=== PATIENT | male | born 1955 | race Caucasian/White ===

== ENCOUNTER 2017-05-15 17:23 | Observation (INO) ==
[2017-05-15] MEDS ORDERED: MORPHINE 2 MG/1 ML SYRINGE IV STA (18:44)
[2017-05-15] MEDS ORDERED: ASPIRIN 325 MG TABLET PO STA (18:44)
[2017-05-15] MEDS ORDERED: ALUM/MAG/SIMETH/LIDO VISC 1:1 30 ML BOTTLE PO STA (18:44)
[2017-05-15] MEDS ORDERED: ONDANSETRON 4 MG/2 ML VIAL IV STA (18:44)
[2017-05-15] MEDS ORDERED: METOPROLOL TARTRATE 25 MG TABLET PO STA (18:44)
[2017-05-15 18:59] LABS: Basophils % 0.4 % (0.0-0.8); Eosinophils # 0.2 10*3/uL (0.0-0.87); Eosinophils % 1.6 % (0.00-10.9); Hematocrit 44.5 VOL% (42.0-52.0); Hemoglobin 15.8 GM/DL (14.0-18.0); Immature Granulocytes % 0.4 %; Immature Granulocytes Absolute 0.04 #; Lymphocytes # 1.5 10*3/uL (1.4-4.0); Lymphocytes % 15.8 % (21.2-54.2); Mean Corpuscular HGB Conc 35.5 GM/DL (32-36); Mean Corpuscular Hemoglobin 31 PG (27-34); Mean Corpuscular Volume 87.4 FL (87-102); Mean Platelet Volume 11.5 FL (9.6-12.0); Monocytes # 0.8 10*3/uL (0.11-0.8); Monocytes % 9.1 % (1.7-12.7); Neutrophils # 6.7 10*3/uL (1.4-7.4); Neutrophils % 72.7 % (38.7-73.9); Platelet Count 181 T/CUMM (130-400); Red Blood Count 5.09 MC/CUMM (3.8-5.5); Red Cell Distribution Width 11.9 % (9.3-17.3); White Blood Count 9.2 T/CUMM (4-12)
[2017-05-15 19:09] LABS: Albumin 3.8 G/DL (3.4-5.0); Bilirubin,Total 0.6 MG/DL (0.2-1.0); Calcium 9.2 MG/DL (8.5-10.1); Magnesium 2.1 MG/DL (1.8-2.4); Osmolality,Calculated 279.5 MOS/KG (273-304); Potassium 3.7 MMOL/L (3.5-5.1); Total Protein 7.3 G/DL (6.4-8.3)
[2017-05-15] MEDS ORDERED: METOPROLOL TARTRATE 25 MG TABLET ONE (19:12)
[2017-05-15] MEDS ORDERED: MORPHINE 2 MG/1 ML SYRINGE ONE (19:13)
[2017-05-15] MEDS ORDERED: ONDANSETRON 4 MG/2 ML VIAL ONE (19:13)
[2017-05-15] MEDS ORDERED: ASPIRIN 325 MG TABLET ONE (19:13)
[2017-05-15] MEDS ORDERED: ALUM/MAG/SIMETH/LIDO VISC 1:1 30 ML BOTTLE PO ONE (19:13)
[2017-05-15] MEDS ORDERED: ENOXAPARIN 100 MG/ML SYRINGE SUBCUT STA (19:39)
[2017-05-15 19:42] LABS: Apearance,Urine CLEAR (Clear); Bilirubin,Urine Negative (Negative); Blood, Urine Negative (Negative); Glucose,Urine (UA) Negative (Negative); Ketones,Urine 5 mg/dL (Negative); Nitrite,Urine Negative (Negative); Protein,Urine Negative; Urine Color Yellow (Yellow); Urine Specific Gravity 1.011 (1.001-1.035); Urine Urobilinogen < 2.0 EU/DL (0.2-1.0); WBC,Urine 1 /HPF (0-6)
[2017-05-15 19:51] LABS: Barbiturates Screen,Urine Negative (Negative); Benzodiazepines Screen,Urine Negative (Negative); Cannabinoid Screen,Urine Negative (Negative); Opiate Screen,Urine Negative (Negative); Phencyclidine Screen,Urine Negative (Negative)
[2017-05-15] MEDS ORDERED: ENOXAPARIN 100 MG/ML SYRINGE SUBCUT ONE (19:55)
[2017-05-15] MEDS ORDERED: ACETAMINOPHEN 325 MG TABLET PO PRN (20:47)
[2017-05-15] MEDS ORDERED: ZALEPLON 5 MG CAPSULE PO PRN (20:47)
[2017-05-15] MEDS ORDERED: DEXTROSE 50% 25 GM/50 ML VIAL IV PRN (20:47)
[2017-05-15] MEDS ORDERED: GLUCAGON 1 MG VIAL IM PRN (20:47)
[2017-05-15] MEDS ORDERED: DOCUSATE SODIUM 100 MG CAPSULE PO PRN (20:47)
[2017-05-15] MEDS ORDERED: MORPHINE 2 MG/1 ML SYRINGE IV PRN (20:47)
[2017-05-15] MEDS ORDERED: ONDANSETRON 4 MG/2 ML VIAL IV PRN (20:47)
[2017-05-15] MEDS ORDERED: NITROGLYCERIN SL 0.4 MG TABLET SL PRN (20:59)
[2017-05-16 00:19] LABS: Troponin I Only < 0.015 NG/ML (0.00-0.045)
[2017-05-16] MEDS: INSULIN LISPRO 100 UNIT/ML SUBCUT SCH ×3 (03:01→11:40)
[2017-05-16 04:23] LABS: Basophils % 0.4 % (0.0-0.8); Eosinophils # 0.2 10*3/uL (0.0-0.87); Eosinophils % 2.8 % (0.00-10.9); Hematocrit 43.5 VOL% (42.0-52.0); Hemoglobin 14.7 GM/DL (14.0-18.0); Immature Granulocytes % 0.3 %; Immature Granulocytes Absolute 0.02 #; Lymphocytes # 2.3 10*3/uL (1.4-4.0); Lymphocytes % 30.7 % (21.2-54.2); Mean Corpuscular HGB Conc 33.8 GM/DL (32-36); Mean Corpuscular Hemoglobin 30 PG (27-34); Mean Corpuscular Volume 89.3 FL (87-102); Mean Platelet Volume 11.2 FL (9.6-12.0); Monocytes # 0.7 10*3/uL (0.11-0.8); Monocytes % 9.1 % (1.7-12.7); Neutrophils # 4.2 10*3/uL (1.4-7.4); Neutrophils % 56.7 % (38.7-73.9); Platelet Count 160 T/CUMM (130-400); Red Blood Count 4.87 MC/CUMM (3.8-5.5); Red Cell Distribution Width 12.2 % (9.3-17.3); White Blood Count 7.5 T/CUMM (4-12)
[2017-05-16 05:03] LABS: Troponin I Only < 0.015 NG/ML (0.00-0.045)
[2017-05-16 05:07] LABS: Calcium 8.5 MG/DL (8.5-10.1); Osmolality,Calculated 280.4 MOS/KG (273-304); Risk Ratio 3.65; Thyroid Stimulating Hormone 1.93 uIU/ml (0.358-3.74); VLDL CHOLESTEROL 34.6 MG/DL
[2017-05-16 08:15] VITALS: BP 114/63
[2017-05-16] MEDS ORDERED: LISINOPRIL 10 MG TABLET PO SCH (09:00)
[2017-05-16] MEDS ORDERED: PANTOPRAZOLE 40 MG TABLET PO SCH (09:00)
[2017-05-16] MEDS ORDERED: BISOPROLOL/HCTZ 5-6.25 MG TABLET PO SCH (09:00)
[2017-05-16] MEDS ORDERED: ASPIRIN EC 325 MG TABLET PO SCH (09:00)
[2017-05-16] MEDS ORDERED: ATORVASTATIN 40 MG TABLET PO SCH (09:00)
[2017-05-16 10:04] LABS: Troponin I Only < 0.015 NG/ML (0.00-0.045)
[2017-05-16] MEDS ORDERED: METOPROLOL TARTRATE 25 MG TABLET PO SCH (11:00)
[2017-05-16] MEDS ORDERED: ATORVASTATIN 80 MG TABLET PO SCH (21:00)
[2017-05-16] MEDS ORDERED: ENOXAPARIN 40 MG/0.4 ML SYRINGE SUBCUT SCH (21:00)
[2017-05-16] MEDS ORDERED: CITALOPRAM 20 MG TABLET PO SCH (21:00)
[2017-05-16] MEDS ORDERED: EZETIMIBE 10 MG TABLET PO SCH (21:00)
[2017-05-17] MEDS ORDERED: ISOSORBIDE MONONITRATE 30 MG TABLET PO SCH (09:00)
[2017-05-17] MEDS ORDERED: BISOPROLOL 5 MG TABLET PO SCH (09:00)
== END 2017-05-16 12:15 | disposition home or self-care (01) ==
LOC: N.EDINP 17:23 → N.ED 17:23 → SUATTDRO 20:47 → N.ICU 22:09
PROVIDERS: ADMIT Hospitalist; ATTEND Internal Medicine

== ENCOUNTER 2020-06-29 20:12 | Observation (INO) ==
[2020-06-29] MEDS ORDERED: ONDANSETRON 4 MG/2 ML VIAL IV STA (21:38)
[2020-06-29] MEDS ORDERED: MORPHINE 4 MG/1 ML VIAL IV STA (21:38)
[2020-06-29] MEDS ORDERED: ASPIRIN 325 MG TABLET PO STA (21:38)
[2020-06-29] MEDS ORDERED: ALUM/MAG/SIMETH/LIDO VISC 1:1 30 ML BOTTLE PO STA (21:38)
[2020-06-29] MEDS ORDERED: NITROGLYCERIN 2% OINT 1 INCH/GM PACK TOP STA (21:38)
[2020-06-29 21:55] LABS: Basophils % 0.4 % (0.0-0.8); Eosinophils # 0.1 10*3/uL (0.0-0.87); Eosinophils % 1.4 % (0.00-10.9); Hematocrit 41.1 VOL% (42.0-52.0); Hemoglobin 14.3 GM/DL (14.0-18.0); Immature Granulocytes % 0.3 %; Immature Granulocytes Absolute 0.02 #; Lymphocytes # 2.3 10*3/uL (1.4-4.0); Lymphocytes % 30.5 % (21.2-54.2); Mean Corpuscular HGB Conc 34.8 GM/DL (32-36); Mean Corpuscular Volume 86.5 FL (87-102); Mean Platelet Volume 11.2 FL (9.6-12.0); Monocytes % 8.1 % (1.7-12.7); Neutrophils % 59.3 % (38.7-73.9); Platelet Count 207 T/CUMM (130-400); Red Blood Count 4.75 MC/CUMM (3.8-5.5); Red Cell Distribution Width 11.8 % (9.3-17.3); White Blood Count 7.7 T/CUMM (4-12)
[2020-06-29 22:02] LABS: Bilirubin,Total 0.4 MG/DL (0.2-1.0); Calcium 9.4 MG/DL (8.5-10.1); Osmolality,Calculated 282.3 MOS/KG (273-304); Total Protein 7.2 G/DL (6.4-8.3)
[2020-06-29 22:03] LABS: PT Patient Result 10.9 SECS (9.8-11.9)
[2020-06-30] MEDS ORDERED: MORPHINE 4 MG/1 ML VIAL IV PRN (00:08)
[2020-06-30] MEDS ORDERED: GLUCAGON 1 MG VIAL IM PRN (00:08)
[2020-06-30] MEDS ORDERED: DEXTROSE 50% 25 GM/50 ML VIAL IV PRN (00:08)
[2020-06-30] MEDS ORDERED: ONDANSETRON 4 MG/2 ML VIAL IV PRN (00:08)
[2020-06-30] MEDS ORDERED: DEXTROSE 50% 25 GM/50 ML SYRINGE IV PRN (00:28)
[2020-06-30] MEDS ORDERED: ENOXAPARIN 40 MG/0.4 ML SYRINGE SUBCUT SCH (00:30)
[2020-06-30 03:22] LABS: Risk Ratio 4.03; VLDL CHOLESTEROL 28.2 MG/DL
[2020-06-30] MEDS ORDERED: NITROGLYCERIN 2% OINT 1 INCH/GM PACK TOP SCH (06:00)
[2020-06-30] MEDS ORDERED: INSULIN REGULAR 100 UNIT/ML SUBCUT SCH (07:30)
[2020-06-30] MEDS ORDERED: PANTOPRAZOLE 40 MG TABLET PO SCH (09:00)
[2020-06-30 10:27] VITALS: BP 105/61
== END 2020-06-30 10:26 | disposition home or self-care (01) ==
LOC: N.ED 20:12 → N.EDINP 20:12 → SUATTDRO 06-30 00:08 → N.EDINP 06-30 10:25
PROVIDERS: ADMIT Family Medicine; ATTEND Family Medicine